=== PATIENT | male | born 1985 | race Two or more races ===

== ENCOUNTER 2024-09-30 19:56 | Emergency (ER) | payer BC ==
[2024-09-30 20:03] VITALS: BP 129/81; PULSE 82; RESP 20; TEMP 97.7; BMI 25.8
[2024-09-30] MEDS ORDERED: propRANOLol HCL 10 MG TABLET ONE ×2 (22:14→22:18)
[2024-09-30] MEDS: propRANOLol HCL 10 MG TABLET PO ONE (22:19)
== END 2024-09-30 22:23 | disposition home or self-care (01) ==
LOC: JER 19:56
DX: F41.9 Anxiety disorder, unspecified (principal)
CPT/HCPCS: 99283-25